=== PATIENT | female | born 1985 | race Caucasian/White ===

== ENCOUNTER 2021-05-06 18:00 | Emergency (ER) | payer SELFPAY ==
[~2021-05-06] VITALS: Ht 157.5 cm; Wt 88.5 kg
[2021-05-06 18:08] VITALS: BP 134/81
--- NOTE | 2021-05-06 20:13 | NUR ---
PT AMBULATED TO BED #6
--- NOTE | 2021-05-06 20:20 | NUR ---
RECEIVED IN BED 6 WITH C/O LACERATIOIN TO FOREHEAD AFTER OBJECT FELL OFF OF SHELF WHILE AT WORK AND HIT PT IN THE FOREHEAD. APPROX 1 CM LACERATION NOTED WITH DRAINAGE CONTROLLED
[2021-05-06] MEDS ORDERED: LIDOCAINE MPF 1% 10 MG/ML VIAL INJ ONE (20:45)
[2021-05-06] MEDS ORDERED: LIDOCAINE MPF 1% 5 ML ONE (20:45)
[2021-05-06] MEDS ORDERED: IBUPROFEN 600 MG TAB PO ONE (20:45)
[2021-05-06] MEDS ORDERED: IBUPROFEN 600 MG TAB ONE (20:45)
[2021-05-06] MEDS ORDERED: IBUP-2213 PO (21:17)
== END 2021-05-06 21:50 | disposition home or self-care (01) ==
LOC: MED 18:00
DX: S01.81XA Laceration without foreign body of other part of head, initial encounter (principal); W26.0XXA Contact with knife, initial encounter; Y93.89 Activity, other specified; Y92.89 Other specified places as the place of occurrence of the external cause; Y99.8 Other external cause status
CPT/HCPCS: 12011; 99282; J2001